=== PATIENT | female | born 1965 | race Two or more races ===

== ENCOUNTER 2018-12-31 10:21 | Emergency (ER) | payer MEDICAID ==
[~2018-12-31] VITALS: Ht 149.9 cm; Wt 69.4 kg
--- NOTE | 2018-12-31 10:33 | NUR ---
ED Nurse Note: Pt walked in from home. Pt is a&ox4. Pt c/o of R 5th digit finger pain. Pt VSS. Pt denies numbness or tingling.
[2018-12-31] MEDS ORDERED: Tetanus/Diptheria/Pertussis IM ONE (10:45)
[2018-12-31 10:51] VITALS: BP 120/81
--- NOTE | 2018-12-31 11:20 | NUR ---
ED Nurse Note: splint applied on Rt pinky.
--- NOTE | 2018-12-31 11:34 | Emergency Room Report ---
History of Present Illness General Chief Complaint: General Complaint Source: Patient Present Illness HPI This patient states that a week and half ago she was in [place] and cut her finger on a don nail. She states that the wound is healing but is not completely approximated. She denies fever chills. She denies nausea or vomiting. She denies weakness. She has no other complaints. Allergies: Coded Allergies: No Known Allergies (Unverified , 12/31/18) Patient History Past Medical History: see triage record, DM Social History: Denies: smoking, alcohol use, drug use Last Menstrual Period: n/a Reviewed Nursing Documentation: PMH: Agreed; PSxH: Agreed Nursing Documentation-PMH Past Medical History: No History, Except For Hx Diabetes: Yes Review of Systems All Other Systems: negative except mentioned in HPI Physical Exam Vital Signs Date Time Temp Pulse Resp B/P (MAP) Pulse Ox O2 Delivery O2 Flow Rate FiO2 12/31/18 10:23 97.9 62 16 124/83 (97) 98 Room Air 12/31/18 10:51 98 Sp02 EP Interpretation: reviewed, normal General Appearance: no apparent distress, alert, GCS 15, non-toxic Head: normocephalic, atraumatic Eyes: bilateral eye normal inspection ENT: hearing grossly normal, no angioedema, normal voice Neck: normal inspection Respiratory: no respiratory distress, no retraction, no accessory muscle use, speaking full sentences Rectal: deferred Genitourinary: normal inspection, no CVA tenderness Musculoskeletal: back normal, gait/station normal, normal range of motion, other - R. 5th digit with 2mm sized healing laceration over the DIP joint. no erythema or warmth. +slight swelling. Neurologic: alert, oriented x3, responsive, motor strength/tone normal, sensory intact, speech normal Psychiatric: judgement/insight normal, memory normal, mood/affect normal, no suicidal/homicidal ideation Skin: other - See above in MSK exam Procedures Splinting Splinting : Consent: Verbal Location: R. 5th digit Pre-Made Type: metal Splint: Extension Pre-Proc Neuro Vasc Exam: normal Post-Proc Neuro Vasc Exam: normal Patient Tolerated: Well Complications: None Medical Decision Making Diagnostic Impression: Primary Impression: Finger laceration ER Course This patient was given a tetanus vaccination. This was to update her. She is outside the window of tetanus treatment. The wound is healing but the location over the DIP joint is causing it not to fully approximate. Therefore, the patient was placed in an extension splint of the fifth digit to allow for better healing. I will also place the patient on a course of prophylactic antibiotics given her history of diabetes. She is also instructed to follow-up closely with her primary care physician for ongoing wound assessment and monitoring. The patient indicated understanding and intention to do so. Patient is given close return precautions and follow-up instructions. Last Vital Signs Date Time Temp Pulse Resp B/P (MAP) Pulse Ox O2 Delivery O2 Flow Rate FiO2 12/31/18 10:51 70 16 Room Air 98 12/31/18 10:51 98.2 120/81 98 Status: improved Disposition: HOME, SELF-CARE Condition: Improved Cleo Arshad DO Dec 31, 2018 11:34
[2018-12-31] MEDS ORDERED: DOXYCYCLINE MO100 MG ORAL (11:36)
[2018-12-31 11:47] VITALS: BP 126/86
--- NOTE | 2018-12-31 11:48 | NUR ---
ED Nurse Note: Pt cleared by health care Provider for discharge after splint applied on Rt pinky. DC instructions and instruction for electrically sent prescription was given and explained to pt and verbalized understanding of teachings. All medical deviecs such as ID band removed. Pt is AAO x4, ambulatory and left with all personal belongings.
== END 2018-12-31 11:50 | disposition home or self-care (01) ==
LOC: EMR 10:50
DX: S61.216A Laceration without foreign body of right little finger without damage to nail, initial encounter (principal); W45.0XXA Nail entering through skin, initial encounter; Y93.9 Activity, unspecified; Y92.9 Unspecified place or not applicable; E11.9 Type 2 diabetes mellitus without complications
CPT/HCPCS: 29130; 90471; 90715; Z7502; 99282